=== PATIENT | female | born 1970 | race Caucasian/White ===

== ENCOUNTER 2016-09-12 08:11 | Outpatient (CLI) | payer OTHER ==
--- NOTE | 2016-09-12 10:40 | Mammography Report ---
Left mammogram and left breast ultrasound: Patient with right mastectomy presenting with generalized left breast pain. Routine mammogram images of the left breast are compared to priors exams dating back to 2014. The patient has a heterogeneously dense fibroglandular pattern with no focal mass, architectural distortion, or calcification. The findings are unchanged from prior exams. Global left breast ultrasound fails to identify any areas of architectural distortion nor mass. CAD used. Impression: Stable, benign left mammogram and left breast ultrasound. Recommendation: Clinical followup. Any additional evaluation at this time should be based on your concern. Annual mammogram followup. BI-RADS CATEGORY: 1 = Negative ACR BI-RADS MAMMOGRAPHIC CODES: 0 = Needs additional imaging evaluation; 1 = Negative; 2 = Benign; 3 = Probably benign; 4 = Suspicious; 5 = Malignant; 6 = Known biopsy-proven malignancy COMMENT: 1. Dense breast tissue, i.e., adenosis, fibrocystic changes, etc., may obscure an underlying neoplasm. 2. Approximately 10% of cancers are not detected with mammography. 3. A negative mammography report should not delay biopsy if a clinically suspicious mass is present.
== END 2016-09-12 08:12 | disposition home or self-care (01) ==
LOC: MAMMO 08:11
PROVIDERS: ATTEND Internal Medicine Hematology & Oncology
DX: C50.411 Malignant neoplasm of upper-outer quadrant of right female breast (principal); N64.4 Mastodynia; Z90.11 Acquired absence of right breast and nipple
CPT/HCPCS: 76641; G0206

== ENCOUNTER 2017-09-16 08:27 | Outpatient (CLI) | payer OTHER ==
--- NOTE | 2017-09-17 13:49 | Mammography Report ---
LEFT DIGITAL SCREENING MAMMOGRAM with CAD: 09/16/17 08:27:00 CLINICAL: Breast cancer survivor status post right mastectomy.Is COMPARISON:09/12/16 FINDINGS: The breast is heterogeneously dense, which may obscure small masses. An upper asymmetry requires additional evaluation.No architectural distortion or suspicious calcifications. IMPRESSION: Upper asymmetry requiring further workup. BI-RADS CATEGORY: 0 -- Additional Imaging Evaluation Required RECOMMENDATION: Recall for left true lateral and spot magnification MLO views and left breast ultrasound if needed. ACR BI-RADS MAMMOGRAPHIC CODES: 0 = Needs additional imaging evaluation; 1 = Negative; 2 = Benign; 3 = Probably benign; 4 = Suspicious; 5 = Malignant; 6 = Known biopsy-proven malignancy COMMENT: 1. Dense breast tissue, i.e., adenosis, fibrocystic changes, etc., may obscure an underlying neoplasm. 2. Approximately 10% of cancers are not detected with mammography. 3. A negative mammography report should not delay biopsy if a clinically suspicious mass is present. COMMENT: Patient follow-up letters are generated via our [employer] application.
== END 2017-09-16 08:28 | disposition home or self-care (01) ==
LOC: MAMMO 08:27
PROVIDERS: ATTEND Internal Medicine Hematology & Oncology
DX: Z12.31 Encounter for screening mammogram for malignant neoplasm of breast (principal); Z90.11 Acquired absence of right breast and nipple

== ENCOUNTER 2017-09-30 08:44 | Outpatient (CLI) | payer OTHER ==
--- NOTE | 2017-09-30 09:18 | Mammography Report ---
Left mammogram: Call back for asymmetry of the upper left breast. Compression MLO and lateral projections are compared to her prior exam in August 2016. No changes are noted on the additional images. The asymmetry is no longer identified. Impression: Stable left breast pattern. Recommendation: Annual mammogram followup. BI-RADS CATEGORY: 1 = Negative ACR BI-RADS MAMMOGRAPHIC CODES: 0 = Needs additional imaging evaluation; 1 = Negative; 2 = Benign; 3 = Probably benign; 4 = Suspicious; 5 = Malignant; 6 = Known biopsy-proven malignancy COMMENT: 1. Dense breast tissue, i.e., adenosis, fibrocystic changes, etc., may obscure an underlying neoplasm. 2. Approximately 10% of cancers are not detected with mammography. 3. A negative mammography report should not delay biopsy if a clinically suspicious mass is present.
== END 2017-09-30 08:45 | disposition home or self-care (01) ==
LOC: SPVWC 08:44
PROVIDERS: ATTEND Internal Medicine Hematology & Oncology
DX: C50.411 Malignant neoplasm of upper-outer quadrant of right female breast (principal); R93.8 Abnormal findings on diagnostic imaging of other specified body structures